=== PATIENT | female | born 2000 | race African-American/Black ===

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

== ENCOUNTER 2020-01-02 22:18 | Inpatient (IN) | payer OTHER ==
[~2020-01-02] VITALS: Ht 180.3 cm; Wt 84.2 kg
[2020-01-02 22:25] VITALS: BP 136/71
[2020-01-02] MEDS ORDERED: MORPHINE SULFAT PO (22:29)
[2020-01-02] MEDS ORDERED: BENADRYL25 MG PO (22:30)
[2020-01-02] MEDS ORDERED: PHENERGAN 25 MG25 MG PO (22:31)
[2020-01-02] MEDS ORDERED: ULTRAM50 MG PO (22:31)
[2020-01-02] MEDS ORDERED: AMITRIPTYLINE100 MG PO (22:32)
[2020-01-02 23:05] LABS: URINE BILIRUBIN NEGATIVE (Negative); URINE BLOOD TRACE (Negative); URINE CLARITY CLEAR; URINE COLOR YELLOW; URINE GLUCOSE-RANDOM* NEGATIVE (Negative); URINE KETONES NEGATIVE (Negative); URINE LEUKOCYTES-REFLEX NEGATIVE (Negative); URINE NITRITE-REFLEX NEGATIVE (Negative); URINE PROTEIN (DIPSTICK) 1+ (Negative); URINE SPECIFIC GRAVITY 1.015 (1.005-1.035); URINE UROBILINOGEN >= 8.0 E.U./dl (0.2-1.0)
[2020-01-02 23:24] LABS: BACTERIA-REFLEX 1-9 Few /HPF (None Seen); CASTS None Seen /LPF (None Seen); CRYSTALS None Seen /LPF (None Seen); SQUAMOUS 4-10 Moderate /LPF (0-3); URINE RBC 3-10 Few /HPF (0-2); URINE WBC-REFLEX 0-5 Rare /HPF (0-5)
[2020-01-02 23:25] LABS: MUCUS 0-3 Light strn/LPF (None Seen)
[2020-01-02 23:30] LABS: WBC 12.4 thou/uL (4.0-11.0)
[2020-01-02 23:32] LABS: HEMOGLOBIN 6.6 gm/dL (12.0-15.0); MCH 30.2 pg (26.0-34.0); MCHC 36.6 g/dL (28.0-37.0); MCV 82.6 fL (80.0-100.0); PLATELET COUNT 395 thou/uL (150-400); RBC 2.18 mil/uL (4.20-5.00); RDW 22.6 % (10.5-14.5)
[2020-01-02 23:36] LABS: CALCIUM 8.1 mg/dL (8.5-10.1); CREATININE 0.4 mg/dL (0.6-1.0); POTASSIUM 3.3 mmol/L (3.5-5.1)
[2020-01-02 23:43] LABS: ALBUMIN 3.4 g/dL (3.4-5.0); TOTAL BILIRUBIN 5.5 mg/dL (0.2-1.0); TOTAL PROTEIN 6.1 g/dL (6.4-8.2)
[2020-01-03 00:27] LABS: ABSOLUTE NEUTROPHILS 6.2 thou/uL (1.4-8.2); NUCLEATED RBCS 6 /100WBC
[2020-01-03 00:29] LABS: ANISOCYTOSIS 3+; PLATELET ESTIMATE NORMAL; POIKILOCYTOSIS 2+; POLYCHROMASIA 2+; SCHISTOCYTES 1+
[2020-01-03 05:25] VITALS: BP 115/60; BP 118/62; BP 120/65; BP 123/67
[2020-01-03 06:38] VITALS: BP 130/81
[2020-01-03 06:45] VITALS: BP 130/81
[2020-01-03 09:05] VITALS: BP 127/71
[2020-01-03 15:50] LABS: ABSOLUTE RETIC COUNT 0.2345 10^6/uL; OBSERVED RETIC COUNT 11.5 % (0.6-2.6)
[2020-01-03 15:58] LABS: ALBUMIN 3.5 g/dL (3.4-5.0); DIRECT BILIRUBIN 0.7 mg/dL (<0.1-0.2); TOTAL BILIRUBIN 5.4 mg/dL (0.2-1.0); TOTAL PROTEIN 5.9 g/dL (6.4-8.2)
--- NOTE | 2020-01-03 17:37 | NUR ---
Patient admitted to unit at 0700 for Sickle Cell Crisis. She has a Port in the left side of her chest. Patient has been sleeping all day. Dr Horner came to see her this am; he had to wake patient up. Patient asked him for "more pain meds." Dr Horner declined, stating "you look pretty comfortable." Patient has asked this nurse to call Dr Gutierrez several x's to ask for an increase in pain medications. She complains of "level nine " generalized pain and Migraine pain; she denies any relief from the medications that are prescribed. If someone wakes her up, she immediately asks for pain medications. She has asked this nurse to "come and let me know when I can have more medications." A nurse working on CCU (friend of patient's) came to check on patient and discuss the need for patient to have more pain medications as well. Vital signs stable, LSCTA, ABD soft and non-tender, BS x's 4; skin is clean, warm, dry and intact. Will report to on-coming nurse. few times
[2020-01-04] VITALS: BP 122/52
--- NOTE | 2020-01-04 02:42 | NUR ---
PT IS UP AD NAA IN ROOM. PT C/O A CONSTANT 9/10 PAIN REGARDLESS OF WHETHER SHE IS GETTING DIULADID OR OXYCODONE. I HAVE GONE IN PT'S ROOM SEVERAL TIMES AND SHE APPEARS TO BE SLEEPING WITH LIGHTS OFF IN BETWEEN GETTING THE PAIN MEDS. WE ARE ALTERNATING PO AND IV. VSS. PT DENIES ANY SOA AND SHE REMAINS ON ROOM AIR.CALL LIGHT WITHIN REACH.
[2020-01-04 03:00] VITALS: BP 135/73
[2020-01-04 06:09] LABS: HEMATOCRIT 21.2 % (37.0-47.0); HEMOGLOBIN 7.3 gm/dL (12.0-15.0); MCH 30.4 pg (26.0-34.0); MCHC 34.5 g/dL (28.0-37.0); RBC 2.4 mil/uL (4.20-5.00); RDW 22.9 % (10.5-14.5); WBC 7.8 thou/uL (4.0-11.0)
[2020-01-04 06:23] LABS: MCV 88.2 fL (80.0-100.0)
[2020-01-04 06:40] LABS: ANION GAP 8 mmol/L (7-16); BUN 1 mg/dL (7-18); CALCIUM 8.5 mg/dL (8.5-10.1); CHLORIDE 106 mmol/L (98-107); CO2 26 mmol/L (21-32); CREATININE 0.3 mg/dL (0.6-1.0); GLUCOSE 84 mg/dL (74-106); MAGNESIUM 1.4 mg/dL (1.8-2.4); POTASSIUM 3.3 mmol/L (3.5-5.1); SODIUM 140 mmol/L (136-145); TROPONIN-I <0.06 ng/mL (<0.06)
--- NOTE | 2020-01-04 07:50 | HC ---
[facility] [place] [address] CONSULTATION Name: WINIFRED MURPHY Room #: 447-P ADM IN M.R.#: [id number] Admission: 01/03/20 Attend Phys: Ishmael Gutierrez MD Discharge: Date of : 99 Report #: [id number] THIS REPORT FOR: cc: Leslie Khan MD, Kelley L. MD McKittrick, Richard James MD ~ CC: Ishmael Khan MD DATE OF SERVICE: 01/03/2020 REASON FOR CONSULTATION: Sickle cell anemia crisis. HISTORY OF PRESENT ILLNESS: The patient is a very pleasant 19-year-old female who gives about a 2-3 day history of increasing chest wall pain and also describes shortness of air, but I think it is more from the chest wall pain. She denies any fevers, any chills, any flu symptoms, any skin rashes, any diarrhea, any bruising. She also tells me that her mother and brother at home have not been sick lately. There are no sick pets. She is not , has no children. PAST MEDICAL HISTORY: Notable for sickle cell disease. She reports going to the Emergency Room about once a month. Her last admission here was in 04/2017. I had communication with Dr. Leslie Khan today, who states that her trigger for transfusions are usually about 6. The patient has also been reported noncompliant with Hydrea in the past. She is taking her folic acid. She tells me she has not been on L-glutamine/Endari in the past. FAMILY HISTORY: I believe she said that her father and a sister have sickle cell disease. SOCIAL HISTORY: Nonsmoker, no alcohol. 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 CURRENT MEDICATIONS: At this time in the hospital include amitriptyline 100 mg at bedtime, famotidine 20 b.i.d., folic acid 1 mg daily, Senna/docusate 1 daily, ipratropium and albuterol respiratory therapy q.4 while awake, OxyIR 20 mg q.4 p.r.n., tramadol 50 mg q.8 p.r.n., hydromorphone 1 mg q.2 IV p.r.n., IV fluids 1 liter over 8 hours, promethazine 12.5 q.8 p.o. p.r.n., Benadryl 25 mg q.6 p.r.n., Zofran 4 mg IV p.o. p.r.n. PHYSICAL EXAMINATION: GENERAL: The patient appears her stated age. VITAL SIGNS: Height is 5 feet 11 inches, 180.3 cm. Weight 185.7 pounds, 84.23 [place] [address] CONSULTATION Name: WINIFRED MURPHY Room #: 447-P ADM IN M.R.#: [id number] Admission: 01/03/20 Attend Phys: Ishmael Gutierrez MD Discharge: Date of : 99 Report #: [id number] kilograms. She is afebrile here. Blood pressure 127/71, respirations 18, pulse 81, temperature as I mentioned 98 orally. NEUROLOGIC: Mood, she first appeared to be asleep with what appeared to be resting comfortably, though she says she is having bad pain. Mood appears to be pleasant. LYMPHATICS: No enlarged lymph nodes in the neck or the axilla or the groin. LUNGS: Appear to be clear anteriorly without rhonchi, wheezes or rales. HEART: Regular rate. As I mentioned her heart rate was 81. Not tachycardic. ABDOMEN: Slightly obese. No masses. EXTREMITIES: Without clubbing, cyanosis. Does not appear to be any notable edema. LABORATORY DATA: Lab review here notable for total bilirubin of 5.5, which is above her usual of 3.2, though she has been 5.2 on one occasion, BUN of 3, creatinine 0.4. Liver functions including AST slightly elevated at 101. ALT was normal at 64. LDH this admit pending. In the past it has been around 438-474. White count on admission 12.4. Note, the patient is usually between 11 and 16 during the ER and admits here. Hemoglobin on admit was 6.6, which is low for her. She is usually in the 6.7 to 7.3 to 7.5 range, platelets are 395, RDW 22.6 little bit higher than usual. Differential on her white count is unremarkable. No acute forms. They do mention some poikilocytosis, polychromasia, and anisocytosis. Note that absolute retic is pending. UA had urobilinogen, was nitrite negative. Did have quite a few squamous cells. ASSESSMENT AND PLAN: 1. History of sickle cell pain, probably in crisis with elevated bilirubin and drop in hemoglobin. Agree with transfusion. Post-transfusion CBC is pending. Continue hydration and opiates cautiously as needed. The patient also continues folic acid. We will encourage ambulation as able and keep an eye on bowel movements and prophylaxis. 2. Sickle pain. Opiates as needed though cautious use. 3. History of migraines, has antiemetics available, also Elavil. We will follow with you. <ELECTRONICALLY SIGNED> By: Keaton Juarez MD 01/04/20 0750 [id number] Keaton Juarez MD /nt
[2020-01-04 08:14] VITALS: BP 132/82
[2020-01-04 15:00] VITALS: BP 138/95
--- NOTE | 2020-01-04 19:07 | NUR ---
Assumed care of pt. at 0700. Pt. is in generalized pain and complains of chest pain. Pt. was given pain medictaions and prescribed fluids but continues to complain and request increased dose of hydromorphone. Physician was contacted and did not increase the pain medication but provided PRN xanax. Pt. accepted xanax, but requested new doctor. Request was communicated to ERGONOMICS TECHNICIAN senior insight manager international for night.
[2020-01-04 19:36] VITALS: BP 138/94
--- NOTE | 2020-01-05 00:29 | NUR ---
ASSESSMENT COMPLETED. PT IS ALERT AND ORIENTED. MAINLY C/O PAIN NOT WELL MANAGED. PT FEELS HER PRIMARY DOCTOR SHOULD BE CONSULTED TO RECOMMEND WHAT HER PAIN REGIMEN SHOULD BE LIKE-ANYWAY, LISTENING EAR PROVIDED. PT HOWEVER SEEMS CALM, CONTINUES ON IV FLUIDS, SHE IS EATING WELL, FOOD BROUGHT IN BY FAMILY, VSS, SHE IS UP AD NAA. NO FURTHET CONCERNS.
[2020-01-05 04:39] VITALS: BP 117/79
[2020-01-05 08:00] VITALS: BP 110/71
[2020-01-05 08:32] LABS: HEMOGLOBIN 8.3 gm/dL (12.0-15.0); WBC 9.2 thou/uL (4.0-11.0)
[2020-01-05 08:35] LABS: ABSOLUTE RETIC COUNT 0.5048 10^6/uL; MCH 30.5 pg (26.0-34.0); MCHC 33.3 g/dL (28.0-37.0); MCV 91.8 fL (80.0-100.0); OBSERVED RETIC COUNT 18.54 % (0.6-2.6); PLATELET COUNT 352 thou/uL (150-400); RBC 2.72 mil/uL (4.20-5.00); RDW 23.8 % (10.5-14.5)
[2020-01-05 08:44] LABS: ALBUMIN 3.4 g/dL (3.4-5.0); DIRECT BILIRUBIN 0.5 mg/dL (<0.1-0.2); TOTAL BILIRUBIN 3.2 mg/dL (0.2-1.0); TOTAL PROTEIN 6.3 g/dL (6.4-8.2)
[2020-01-05 09:01] LABS: ABSOLUTE NEUTROPHILS 2.4 thou/uL (1.4-8.2); CORRECTED WBC 8.3 thou/uL (4.0-11.0); NUCLEATED RBCS 11 /100WBC; PLATELET ESTIMATE NORMAL
[2020-01-05 09:02] LABS: ANISOCYTOSIS 3+
[2020-01-05 09:03] LABS: MACROCYTES 1+; MICROCYTES 1+; OVALOCYTES 1+; POIKILOCYTOSIS SLIGHT; SCHISTOCYTES OCCASIONAL
[2020-01-05 09:04] LABS: LARGE PLATELETS OCCASIONAL
--- NOTE | 2020-01-05 13:43 | NUR ---
Chart reviewed and case discussed with the care team. Pt up ad kennedy. Continues on iv pain meds for sickle cell crisis. Pt has insurance and pcp in place for f/u care. Pt has supportive family. No cm interventions indicated at this time. Possible dc to home this weekend.
[2020-01-05 15:20] VITALS: BP 150/80
--- NOTE | 2020-01-05 19:43 | NUR ---
Assumed care of pt. at 0700. Pt. complains of pain. Pt. asks for increase in dosage of all pain meds and wants a new attending physician. Pt. requested increase in dosage of pain medication throughout shift. Physiscian notified. No orders given. Pt. was up and walking around multiple times. Pt. rested most of day.
[2020-01-05 20:30] VITALS: BP 135/90
--- NOTE | 2020-01-06 01:31 | NUR ---
ASSESSMENT COMPLETED AT THE START OF SHIFT. PT IS ALERT AND ORIENTED. CONTINUES TO RATE PAIN AT A 8-9 RANGE. PT IS UP AD NAA IN ROOM WITH IV FLUIDS RUNNING.SATTING OKAY ON ROOM AIR. SHE WAS OBSERVED EATING AND VIDEO CHATTING WITH FAMILY MBRS . AFEBRILE. WILL CONTINUE WITH PAIN MGT.
[2020-01-06 09:15] VITALS: BP 124/86
[2020-01-06 12:45] VITALS: BP 124/86
--- NOTE | 2020-01-06 14:10 | NUR ---
Assumed care of pt. at 0700. Pt. complains of pain and wants to have pain medication doses increased still. Pt. requests a new doctor that will increase pain med dosage. Physician mike danielsonmolaurie and pt. wanted the DrKian to explain why in person. Pt. then asked to be discharged because her meds were not increased. Pt. left to the ED exit and attempted to leave facility, but was stopped by greeting staff. Pt. returned to room and requested an AMA. Power Port was deaccessed and dressed. Pt. was discharged by physician and asked to conact her PCP for scripts and left with all belongings.
== END 2020-01-06 12:30 | disposition home or self-care (01) | DRG 811 ==
LOC: ER 22:18 → EROBS 01-03 00:29 → 4S 01-03 00:29
PROVIDERS: Emergency Medicine; Internal Medicine Hematology & Oncology; Nurse Practitioner Family; ADMIT Hospitalist; ATTEND Hospitalist
PROC: 30233N1 Transfusion of Nonautologous Red Blood Cells into Peripheral Vein, Percutaneous Approach (ICD-10-PCS; principal; 2020-01-03)
DX: D57.00 Hb-SS disease with crisis, unspecified (principal); R65.11 Systemic inflammatory response syndrome (SIRS) of non-infectious origin with acute organ dysfunction; E87.6 Hypokalemia; G43.909 Migraine, unspecified, not intractable, without status migrainosus; R09.1 Pleurisy; G89.29 Other chronic pain; Z79.899 Other long term (current) drug therapy; Z88.8 Allergy status to other drugs, medicaments and biological substances; Z90.49 Acquired absence of other specified parts of digestive tract
CPT/HCPCS: 10195

== ENCOUNTER 2020-06-03 12:01 | Emergency (ER) | payer OTHER ==
[~2020-06-03] VITALS: Ht 182.9 cm; Wt 81.7 kg
[~2020-06-03 12:01] MED LIST changes: +AMITRIPTYLINE100 MG PO; +MORPHINE SULFAT PO; +PHENERGAN 25 MG25 MG PO; +ULTRAM50 MG PO
[2020-06-03] MEDS ORDERED: OXYCONTIN60 MG PO (14:31)
[2020-06-03 15:42] LABS: HEMATOCRIT 20.3 % (37.0-47.0); HEMOGLOBIN 6.8 gm/dL (12.0-15.0); MCHC 33.5 g/dL (28.0-37.0); MCV 89.3 fL (80.0-100.0); PLATELET COUNT 375 thou/uL (150-400); RBC 2.28 mil/uL (4.20-5.00); WBC 16.5 thou/uL (4.0-11.0)
[2020-06-03 15:43] LABS: ABSOLUTE RETIC COUNT 0.5219 10^6/uL; OBSERVED RETIC COUNT 22.93 % (0.6-2.6)
[2020-06-03 15:47] LABS: CREATININE 0.4 mg/dL (0.6-1.0); POTASSIUM 3.7 mmol/L (3.5-5.1)
[2020-06-03 15:52] LABS: ALBUMIN 3.6 g/dL (3.4-5.0); TOTAL BILIRUBIN 3.5 mg/dL (0.2-1.0); TOTAL PROTEIN 6.5 g/dL (6.4-8.2)
[2020-06-03 16:05] LABS: ABSOLUTE NEUTROPHILS 5.9 thou/uL (1.4-8.2); ANISOCYTOSIS 3+; CORRECTED WBC 12.9 thou/uL (4.0-11.0); NUCLEATED RBCS 28 /100WBC; POLYCHROMASIA 1+; TARGET CELLS 1+
[2020-06-03 16:06] LABS: LARGE PLATELETS OCCASIONAL
[2020-06-03] MEDS ORDERED: ROXICODONE15 M1 PO (17:35)
[2020-06-03 18:06] VITALS: BP 122/74
--- NOTE | 2020-06-04 07:16 | EKG ---
[address] [place] [employer] [place] [address] ELECTROCARDIOGRAM REPORT Name: WINIFRED MURPHY Room #: DEP Zeinab#: [id number] Admission: 06/03/20 Attend Phys: Discharge: 06/03/20 Date of : 99 Report #: [id number] [facility] ED Test Date: 2020-06-03 Test Time: 15:46:08 Pat Name: WINIFRED MURPHY Department: Room: Gender: F [employer]: MARA : 2000 Requested By: Johnnie Page Order Number: [id number] MD: Danish Moreira Measurements Intervals [place] Rate: 76 P: 15 MO: 178 QRS: 42 QRSD: 89 T: 11 QT: 377 QTc: 424 Interpretive Statements Sinus rhythm Probable left atrial enlargement No previous ECG available for comparison Electronically Signed On 06-04-2020 7:16:28 PROFILING MACHINE OPERATOR by Danish Moreira [email or web address] <ELECTRONICALLY SIGNED> By: Danish Moreira MD, [facility] 06/04/20 0716 1546 1546 Danish Moreira MD, FACC /EPI
== END 2020-06-03 18:06 | disposition home or self-care (01) ==
LOC: ER 12:01
PROVIDERS: Emergency Medicine
DX: D57.00 Hb-SS disease with crisis, unspecified (principal); R07.89 Other chest pain; R07.81 Pleurodynia; M79.604 Pain in right leg; G43.909 Migraine, unspecified, not intractable, without status migrainosus; Z79.899 Other long term (current) drug therapy; Z88.8 Allergy status to other drugs, medicaments and biological substances